=== PATIENT | male | born 1985 | race Caucasian/White ===

== ENCOUNTER 2016-07-11 10:30 | Emergency (ER) | payer SELFPAY ==
[~2016-07-11] VITALS: Ht 180.3 cm; Wt 77.0 kg
[2016-07-11 10:31] VITALS: BP 149/74; PULSE 82; RESP 16; TEMP 98.2; O2SAT 99
--- NOTE | 2016-07-11 10:37 | PD ---
HPI . right knee pain x 2 days Chief Complaint: Musculoskeletal Complaint Time Seen by Provider: 10:37 Travel History International Travel<30 days: No Contact w/Intl Traveler<30days: No Traveled to known affect area: No History of Present Illness HPI 30-year-old male with no past medical history here with complaints of right knee pain for 2 days s/p picking up a larger sized woman [place] on a cruise ship. He says that he was slightly intoxicated and was dancing with a woman when he picked her up and he felt his knee pop and it gave out on him. He is here wanting to know if he can travel. He has a flight to [place]. He is able to walk, but it causes him pain. The knee is slightly swollen. He reports the pain as 5/10. He denies radiation elsewhere. [facility] Past Medical History Medical History: Denies Significant Hx Social History Alcohol Use: Yes Tobacco Use: No Substance Use: No Allergies-Medications (Allergen,Severity, Reaction): Coded Allergies: Penicillin (Verified Allergy, Unknown, 07/11/16) Reported Meds & Prescriptions Reported Meds & Active Scripts Active Ibuprofen 800 Mg Tab 800 Mg PO TID Review of Systems General / Constitutional: No: Fever Eyes: No: Visual changes HENT: No: Headaches Cardiovascular: No: Chest Pain or Discomfort Respiratory: No: Shortness of Breath Gastrointestinal: No: Abdominal Pain Genitourinary: No: Dysuria Musculoskeletal: Positive: Pain (right knee pain) Skin: No Rash Neurologic: No: Weakness Psychiatric: No: Depression Endocrine: No: Polydipsia Hematologic/Lymphatic: No: Easy Bruising Physical Exam Narrative GENERAL: AAO x 3, no acute distress, Well-nourished, well-developed patient. SKIN: Warm and dry. No visible rashes or bruising. No ecchymosis of right knee. HEAD: Normocephalic and atraumatic. EYES: No scleral icterus. No injection or drainage. EOM intact, PERRLA ENT: No nasal drainage noted. Mucous membranes pink. Airway patent. NECK: Supple, trachea midline. No JVD. CARDIOVASCULAR: Regular rate and rhythm without murmurs, gallops, or rubs. RESPIRATORY: Breath sounds equal bilaterally. No accessory muscle use. No rhonchi or rales. GASTROINTESTINAL: Abdomen soft, non-tender, nondistended. EXTREMITIES: No cyanosis. small joint effusion seen near right medial knee near patella. Knee flexion and extension normal. Joint is stable without any laxity.Valgus and varus stress testing normal. BACK: Nontender without obvious deformity. No CVA tenderness. PSYCH: AAO x 3, normal affect. Data Data Last Documented VS Vital Signs Date Time Temp Pulse Resp B/P Pulse Ox O2 Delivery O2 Flow Rate FiO2 07/11/16 10:31 98.2 82 16 149/74 99 Orders ^ Luis Carlos Bandage (07/11/16 10:42) Crutches (07/11/16 10:42) MDM Medical Decision Making Medical Screen Exam Complete: Yes Emergency Medical Condition: Yes Medical Record Reviewed: Yes Differential Diagnosis s/p dislocation of right knee, less likely knee fracture, knee sprain Narrative Course 30-year-old male with no past medical history here with complaints of right knee pain for 2 days s/p picking up a larger sized woman [place] on a cruise ship. He says that he was slightly intoxicated and was dancing with a woman when he picked her up and he felt his knee pop and it gave out on him. He is here wanting to know if he can travel. He has a flight to [place]. He is able to walk, but it causes him pain. The knee is slightly swollen. He reports the pain as 5/10. He denies radiation elsewhere. Patient seen and examined. He does not appear to have any acute bony ML he of the right knee. I have discussed this with him and explained that more than likely this is some swelling status post dislocation of his knee. The knee is back in place and he has full range of motion of this extremity. I will go ahead and provide him with an Luis Carlos wrap for stability and crutches to offload. I've advised him that he will need to follow-up with his primary care provider. I'll provide him some ibuprofen for anti-inflammatory properties. I advised him if his condition worsens, go to the nearest emergency department. Patient verbalized understanding of instructions, questions were answered, and thanked me for their care. I advised them if their condition worsens, please return to the nearest emergency room for further care. Diagnosis Primary Impression: Right knee pain Qualified Code: M25.561 - Acute pain of right knee Patient Instructions: General Instructions Additional Instructions: Rest the affected area as much as possible. Ice this area for 15-20 minutes at a time. You can do this every hour or as much as tolerated. Keep this area compressed (luis carlos bandage) as tolerated. Elevate this area. Use ibuprofen as needed for pain and inflammation. Please return to emergency department if your symptoms return or worsen. Follow up with your primary care provider. Take medications as prescribed. Med/Other Pt SpecificInfo: Prescription(s) given Scripts Ibuprofen 800 Mg [id number] Mg PO TID #21 TAB Prov:Debra Akhtar MD 07/11/16 Disposition: 01 DISCHARGE HOME Condition: Stable Ghazala Butler July 11, 2016 10:37
[2016-07-11] MEDS ORDERED: IBUP800T23 PO (10:43)
== END 2016-07-11 11:13 | disposition home or self-care (01) ==
LOC: NEPK 10:30
DX: M25.561 Pain in right knee (principal); X50.0XXA Overexertion from strenuous movement or load, initial encounter; Y92.814 Boat as the place of occurrence of the external cause
CPT/HCPCS: 99283; E0113